=== PATIENT | female | born 1990 | race African-American/Black ===

== ENCOUNTER 2016-11-28 01:04 | Emergency (ER) | payer OTHER ==
[~2016-11-28] VITALS: Ht 167.6 cm; Wt 71.7 kg
[~2016-11-28 01:04] MED LIST: 0; AZITHROMYCIN 2250 MG PO; DERMOPLAST SPRA56 ML; HYDROCORTISONE30 G9 TOP; IBUPROFEN 600600 M1 PO; IBUPROFEN 800800 M1 PO; MIRALAX255 GM PO; NOHOMEMEDICATIONS; NORCO 5-325 TA1 EACH PO; ONDANSETRON HCL4 M2 PO; PRENATAL PO; TUCKS MEDICATE1 EAC1; TYLENOL W/CODEI1 TA2 PO
[2016-11-28] MEDS ORDERED: PENICILLIN VK500 M1 PO (01:21)
[2016-11-28] MEDS ORDERED: NORCO 5-325 TA1 EACH PO ×2 (01:21→01:24)
== END 2016-11-28 01:48 | disposition home or self-care (01) ==
LOC: ER 01:04
DX: K08.89 Other specified disorders of teeth and supporting structures (principal); F10.99 Alcohol use, unspecified with unspecified alcohol-induced disorder; Z98.890 Other specified postprocedural states

== ENCOUNTER 2017-06-22 01:03 | Emergency (ER) | payer OTHER ==
[~2017-06-22] VITALS: Ht 167.6 cm; Wt 77.1 kg
[~2017-06-22 01:03] MED LIST changes: +PENICILLIN VK500 M1 PO
[2017-06-22] MEDS ORDERED: NOHOMEMEDICATIONS (01:07)
[2017-06-22 02:49] LABS: URINE BILIRUBIN NEGATIVE (Negative); URINE BLOOD NEGATIVE (Negative); URINE CLARITY CLEAR; URINE COLOR YELLOW; URINE GLUCOSE-RANDOM* NEGATIVE (Negative); URINE KETONES NEGATIVE (Negative); URINE LEUKOCYTES-REFLEX NEGATIVE (Negative); URINE NITRITE-REFLEX NEGATIVE (Negative); URINE PROTEIN (DIPSTICK) NEGATIVE (Negative); URINE SPECIFIC GRAVITY 1.015 (1.005-1.035); URINE UROBILINOGEN 0.2 E.U./dl (0.2-1.0)
[2017-06-22] MEDS ORDERED: PROMETH-CODEIN 65 ML PO (03:05)
[2017-06-22] MEDS ORDERED: MUCINEX D TABL1 EACH PO (03:05)
[2017-06-22 03:13] VITALS: BP 126/76
== END 2017-06-22 03:15 | disposition home or self-care (01) ==
LOC: ER 01:03
PROVIDERS: Emergency Medicine
DX: J11.1 Influenza due to unidentified influenza virus with other respiratory manifestations (principal); Z90.49 Acquired absence of other specified parts of digestive tract

== ENCOUNTER 2017-08-20 18:46 | Emergency (ER) | payer OTHER ==
[~2017-08-20] VITALS: Ht 167.6 cm; Wt 78.9 kg
[~2017-08-20 18:46] MED LIST changes: +MUCINEX D TABL1 EACH PO; +PROMETH-CODEIN 65 ML PO
[2017-08-20 19:34] LABS: URINE BILIRUBIN NEGATIVE (Negative); URINE BLOOD NEGATIVE (Negative); URINE CLARITY CLEAR; URINE COLOR YELLOW; URINE GLUCOSE-RANDOM* NEGATIVE (Negative); URINE KETONES NEGATIVE (Negative); URINE LEUKOCYTES NEGATIVE (Negative); URINE NITRITE NEGATIVE (Negative); URINE PROTEIN (DIPSTICK) NEGATIVE (Negative); URINE SPECIFIC GRAVITY 1.015 (1.005-1.035); URINE UROBILINOGEN 0.2 E.U./dl (0.2-1.0)
[2017-08-20] MEDS ORDERED: NAPROSYN500 MG PO (19:54)
[2017-08-20] MEDS ORDERED: TIZANIDINE HCL4 MG PO (19:54)
== END 2017-08-20 20:18 | disposition home or self-care (01) ==
LOC: ER 18:46
PROVIDERS: Nurse Practitioner
DX: M54.5 Low back pain (principal); Z90.49 Acquired absence of other specified parts of digestive tract

== ENCOUNTER 2017-08-31 16:53 | Emergency (ER) | payer OTHER ==
[~2017-08-31] VITALS: Ht 167.6 cm; Wt 79.4 kg
[~2017-08-31 16:53] MED LIST changes: +NAPROSYN500 MG PO; +TIZANIDINE HCL4 MG PO
[2017-08-31 17:43] LABS: URINE BILIRUBIN NEGATIVE (Negative); URINE BLOOD 2+ (Negative); URINE CLARITY CLEAR; URINE COLOR YELLOW; URINE GLUCOSE-RANDOM* NEGATIVE (Negative); URINE KETONES NEGATIVE (Negative); URINE LEUKOCYTES NEGATIVE (Negative); URINE NITRITE NEGATIVE (Negative); URINE PROTEIN (DIPSTICK) NEGATIVE (Negative); URINE UROBILINOGEN 0.2 E.U./dl (0.2-1.0)
[2017-08-31 17:57] LABS: CASTS None Seen /LPF (None Seen); CRYSTALS None Seen /LPF (None Seen); SQUAMOUS 0-3 Few /LPF (0-3); URINE RBC 3-10 Few /HPF (0-2); URINE WBC None Seen /HPF (0-5)
[2017-08-31 18:12] LABS: ABSOLUTE NEUTROPHILS 4.1 thou/uL (1.4-8.2); BASOPHILS 0.4 % (0.0-2.0); HEMATOCRIT 39.7 % (37.0-47.0); HEMOGLOBIN 13.4 gm/dL (12.0-15.0); LYMPHOCYTES 22.8 % (24.0-44.0); MCH 31.2 pg (26.0-34.0); MCHC 33.6 g/dL (28.0-37.0); MCV 92.7 fL (80.0-100.0); PLATELET COUNT 301 thou/uL (150-400); POLYS 66.8 % (36.0-66.0); RBC 4.29 mil/uL (4.20-5.00); RDW 12.8 % (10.5-14.5); WBC 6.1 thou/uL (4.0-11.0)
[2017-08-31 18:22] LABS: CALCIUM 9.3 mg/dL (8.5-10.1); CREATININE 0.8 mg/dL (0.6-1.0); POTASSIUM 3.6 mmol/L (3.5-5.1)
[2017-08-31 18:28] LABS: ALBUMIN 3.5 g/dL (3.4-5.0); TOTAL BILIRUBIN 0.3 mg/dL (<0.1-1.0)
[2017-08-31] MEDS ORDERED: ZANTAC 150MG T150 MG PO (18:39)
[2017-08-31] MEDS ORDERED: ONDANSETRON HCL4 M2 PO (18:39)
[2017-08-31] MEDS ORDERED: BENTYL 20 MG TA20 M1 PO (18:39)
== END 2017-08-31 19:10 | disposition home or self-care (01) ==
LOC: ER 16:53
PROVIDERS: Nurse Practitioner Family
DX: R10.9 Unspecified abdominal pain (principal); R11.2 Nausea with vomiting, unspecified

== ENCOUNTER 2017-09-02 23:37 | Emergency (ER) | payer OTHER ==
[~2017-09-02] VITALS: Ht 167.6 cm; Wt 79.4 kg
[~2017-09-02 23:37] MED LIST changes: +BENTYL 20 MG TA20 M1 PO; +ZANTAC 150MG T150 MG PO
[2017-09-03 00:15] LABS: URINE BILIRUBIN NEGATIVE (Negative); URINE BLOOD NEGATIVE (Negative); URINE CLARITY CLEAR; URINE COLOR YELLOW; URINE GLUCOSE-RANDOM* NEGATIVE (Negative); URINE KETONES NEGATIVE (Negative); URINE LEUKOCYTES-REFLEX NEGATIVE (Negative); URINE NITRITE-REFLEX NEGATIVE (Negative); URINE PROTEIN (DIPSTICK) NEGATIVE (Negative); URINE UROBILINOGEN 0.2 E.U./dl (0.2-1.0)
[2017-09-03 00:42] LABS: CALCIUM 9.1 mg/dL (8.5-10.1); CREATININE 0.8 mg/dL (0.6-1.0); POTASSIUM 3.8 mmol/L (3.5-5.1)
[2017-09-03 00:43] LABS: ABSOLUTE NEUTROPHILS 2.9 thou/uL (1.4-8.2); BASOPHILS 1.1 % (0.0-2.0); EOSINOPHILS 9.3 % (0.0-3.0); HEMATOCRIT 38.6 % (37.0-47.0); LYMPHOCYTES 25.4 % (24.0-44.0); MCH 31.2 pg (26.0-34.0); MCHC 33.7 g/dL (28.0-37.0); MCV 92.5 fL (80.0-100.0); MONOCYTES 8.8 % (1.0-8.0); PLATELET COUNT 278 thou/uL (150-400); POLYS 55.4 % (36.0-66.0); RBC 4.18 mil/uL (4.20-5.00); RDW 12.8 % (10.5-14.5); WBC 5.2 thou/uL (4.0-11.0)
[2017-09-03 00:47] LABS: ALBUMIN 3.3 g/dL (3.4-5.0); TOTAL BILIRUBIN 0.2 mg/dL (<0.1-1.0); TOTAL PROTEIN 7.7 g/dL (6.4-8.2)
== END 2017-09-03 02:51 | disposition home or self-care (01) ==
LOC: ER 23:37
PROVIDERS: Emergency Medicine
DX: R10.9 Unspecified abdominal pain (principal); R11.0 Nausea; R22.9 Localized swelling, mass and lump, unspecified; Z90.49 Acquired absence of other specified parts of digestive tract

== ENCOUNTER 2017-09-22 20:59 | Emergency (ER) | payer OTHER ==
[~2017-09-22] VITALS: Ht 167.6 cm; Wt 79.4 kg
[2017-09-22 21:39] LABS: ABSOLUTE NEUTROPHILS 3.1 thou/uL (1.4-8.2); BASOPHILS 0.8 % (0.0-2.0); EOSINOPHILS 7.1 % (0.0-3.0); HEMATOCRIT 38.6 % (37.0-47.0); HEMOGLOBIN 12.8 gm/dL (12.0-15.0); MCHC 33.2 g/dL (28.0-37.0); MCV 93.3 fL (80.0-100.0); MONOCYTES 7.9 % (1.0-8.0); PLATELET COUNT 302 thou/uL (150-400); POLYS 59.2 % (36.0-66.0); RBC 4.13 mil/uL (4.20-5.00); RDW 12.6 % (10.5-14.5); WBC 5.3 thou/uL (4.0-11.0)
[2017-09-22 21:40] LABS: URINE BILIRUBIN NEGATIVE (Negative); URINE BLOOD NEGATIVE (Negative); URINE CLARITY CLEAR; URINE COLOR YELLOW; URINE GLUCOSE-RANDOM* NEGATIVE (Negative); URINE KETONES NEGATIVE (Negative); URINE LEUKOCYTES NEGATIVE (Negative); URINE NITRITE NEGATIVE (Negative); URINE PROTEIN (DIPSTICK) NEGATIVE (Negative); URINE SPECIFIC GRAVITY 1.025 (1.005-1.035); URINE UROBILINOGEN 0.2 E.U./dl (0.2-1.0)
[2017-09-22 21:47] LABS: CALCIUM 9.1 mg/dL (8.5-10.1); CREATININE 0.8 mg/dL (0.6-1.0); POTASSIUM 3.4 mmol/L (3.5-5.1)
[2017-09-22 21:53] LABS: ALBUMIN 3.6 g/dL (3.4-5.0); TOTAL BILIRUBIN 0.2 mg/dL (<0.1-1.0); TOTAL PROTEIN 7.7 g/dL (6.4-8.2)
[2017-09-22] MEDS ORDERED: BENTYL 20 MG TA20 M1 PO (22:12)
== END 2017-09-22 23:22 | disposition home or self-care (01) ==
LOC: ER 20:59
PROVIDERS: Physician Assistant
DX: R10.9 Unspecified abdominal pain (principal); R11.0 Nausea; Z90.49 Acquired absence of other specified parts of digestive tract

== ENCOUNTER 2017-10-26 01:59 | Emergency (ER) | payer OTHER ==
[~2017-10-26] VITALS: Ht 167.6 cm; Wt 77.1 kg
[2017-10-26] MEDS ORDERED: PROMETHAZINE/C118 ML PO (03:22)
[2017-10-26] MEDS ORDERED: MUCINEX D ER 11 EACH PO (03:22)
[2017-10-26] MEDS ORDERED: IBUPROFEN 600600 M1 PO (03:22)
== END 2017-10-26 03:30 | disposition home or self-care (01) ==
LOC: ER 01:59
DX: J06.9 Acute upper respiratory infection, unspecified (principal)

== ENCOUNTER 2017-12-07 00:53 | Emergency (ER) | payer OTHER ==
[~2017-12-07] VITALS: Ht 167.6 cm; Wt 79.4 kg
[~2017-12-07 00:53] MED LIST changes: +MUCINEX D ER 11 EACH PO; +PROMETHAZINE/C118 ML PO
[2017-12-07 01:18] LABS: URINE BILIRUBIN NEGATIVE (Negative); URINE BLOOD NEGATIVE (Negative); URINE CLARITY CLEAR; URINE COLOR YELLOW; URINE GLUCOSE-RANDOM* NEGATIVE (Negative); URINE KETONES NEGATIVE (Negative); URINE LEUKOCYTES NEGATIVE (Negative); URINE NITRITE NEGATIVE (Negative); URINE PROTEIN (DIPSTICK) NEGATIVE (Negative); URINE SPECIFIC GRAVITY >= 1.030 (1.005-1.035)
== END 2017-12-07 02:45 | disposition home or self-care (01) ==
LOC: ER 00:53
PROVIDERS: Emergency Medicine
DX: N76.0 Acute vaginitis (principal); Z90.89 Acquired absence of other organs

== ENCOUNTER 2018-06-29 08:23 | Emergency (ER) | payer OTHER ==
[~2018-06-29] VITALS: Ht 170.2 cm; Wt 79.4 kg
[2018-06-29 08:24] VITALS: BP 114/71
[2018-06-29] MEDS ORDERED: NORCO 5-325 TA1 EACH PO (09:07)
== END 2018-06-29 09:20 | disposition home or self-care (01) ==
LOC: ER 08:23
DX: S00.83XA Contusion of other part of head, initial encounter (principal); Z90.49 Acquired absence of other specified parts of digestive tract; V89.2XXA Person injured in unspecified motor-vehicle accident, traffic, initial encounter; Y93.89 Activity, other specified; Y92.89 Other specified places as the place of occurrence of the external cause; Y99.8 Other external cause status

== ENCOUNTER 2018-11-03 13:04 | Emergency (ER) | payer MEDICAID ==
[~2018-11-03] VITALS: Ht 167.6 cm; Wt 81.7 kg
[2018-11-03 13:54] LABS: URINE BILIRUBIN NEGATIVE (Negative); URINE BLOOD NEGATIVE (Negative); URINE CLARITY CLEAR; URINE COLOR YELLOW; URINE GLUCOSE-RANDOM* NEGATIVE (Negative); URINE KETONES NEGATIVE (Negative); URINE LEUKOCYTES-REFLEX NEGATIVE (Negative); URINE NITRITE-REFLEX NEGATIVE (Negative); URINE PROTEIN (DIPSTICK) NEGATIVE (Negative); URINE SPECIFIC GRAVITY 1.015 (1.005-1.035); URINE UROBILINOGEN 0.2 E.U./dl (0.2-1.0)
[2018-11-03] MEDS ORDERED: FLAGYL500 M1 PO (14:10)
[2018-11-03 14:30] VITALS: BP 126/86
== END 2018-11-03 14:30 | disposition home or self-care (01) ==
LOC: ER 13:04
PROVIDERS: Nurse Practitioner Family
DX: N76.0 Acute vaginitis (principal); B96.89 Other specified bacterial agents as the cause of diseases classified elsewhere; Z90.49 Acquired absence of other specified parts of digestive tract; Z98.890 Other specified postprocedural states

== ENCOUNTER 2019-01-17 03:18 | Emergency (ER) | payer MEDICAID ==
[~2019-01-17] VITALS: Ht 167.6 cm; Wt 81.7 kg
[~2019-01-17 03:18] MED LIST changes: +FLAGYL500 M1 PO
[2019-01-17 03:40] LABS: URINE BILIRUBIN NEGATIVE (Negative); URINE BLOOD NEGATIVE (Negative); URINE CLARITY CLEAR; URINE COLOR YELLOW; URINE GLUCOSE-RANDOM* NEGATIVE (Negative); URINE KETONES NEGATIVE (Negative); URINE LEUKOCYTES-REFLEX NEGATIVE (Negative); URINE NITRITE-REFLEX NEGATIVE (Negative); URINE PROTEIN (DIPSTICK) NEGATIVE (Negative); URINE SPECIFIC GRAVITY 1.025 (1.005-1.035); URINE UROBILINOGEN 0.2 E.U./dl (0.2-1.0)
[2019-01-17 03:59] LABS: ABSOLUTE NEUTROPHILS 1.5 thou/uL (1.4-8.2); BASOPHILS 1.5 % (0.0-2.0); EOSINOPHILS 7.6 % (0.0-3.0); HEMATOCRIT 38.4 % (37.0-47.0); HEMOGLOBIN 13.2 gm/dL (12.0-15.0); LYMPHOCYTES 40.2 % (24.0-44.0); MCH 31.3 pg (26.0-34.0); MCHC 34.3 g/dL (28.0-37.0); MCV 91.5 fL (80.0-100.0); MONOCYTES 8.9 % (1.0-8.0); PLATELET COUNT 280 thou/uL (150-400); POLYS 41.8 % (36.0-66.0); RDW 12.6 % (10.5-14.5); WBC 3.7 thou/uL (4.0-11.0)
[2019-01-17 04:02] LABS: CALCIUM 10.1 mg/dL (8.5-10.1); CREATININE 0.9 mg/dL (0.6-1.0)
[2019-01-17 04:04] LABS: POTASSIUM 2.8 mmol/L (3.5-5.1)
[2019-01-17 04:09] LABS: ALBUMIN 3.5 g/dL (3.4-5.0); DIRECT BILIRUBIN < 0.1 mg/dL (<0.1-0.3); LIPASE 93 U/L (73-393); SGOT 15 U/L (15-37); SGPT 18 U/L (30-65); TOTAL BILIRUBIN 0.2 mg/dL (<0.1-1.0); TOTAL PROTEIN 7.8 g/dL (6.4-8.2)
[2019-01-17] MEDS ORDERED: ONDANSETRON ODT8 MG PO (04:58)
[2019-01-17] MEDS ORDERED: TRAMADOL 50 MG50 MG PO (04:58)
[2019-01-17] MEDS ORDERED: PRILOSEC OTC20 MG PO (04:58)
[2019-01-17 05:24] VITALS: BP 102/70
== END 2019-01-17 05:24 | disposition home or self-care (01) ==
LOC: ER 03:18
PROVIDERS: Emergency Medicine
DX: K21.9 Gastro-esophageal reflux disease without esophagitis (principal); E87.6 Hypokalemia; R11.2 Nausea with vomiting, unspecified; Z90.49 Acquired absence of other specified parts of digestive tract

== ENCOUNTER 2019-04-07 07:05 | Emergency (ER) | payer MEDICAID ==
[~2019-04-07] VITALS: Ht 167.6 cm; Wt 81.7 kg
[~2019-04-07 07:05] MED LIST changes: +ONDANSETRON ODT8 MG PO; +PRILOSEC OTC20 MG PO; +TRAMADOL 50 MG50 MG PO
[2019-04-07 07:18] VITALS: BP 101/54
[2019-04-07] MEDS ORDERED: ZPAK PO (07:41)
== END 2019-04-07 07:51 | disposition home or self-care (01) ==
LOC: ER 07:05
DX: J20.9 Acute bronchitis, unspecified (principal); Z90.49 Acquired absence of other specified parts of digestive tract

== ENCOUNTER 2020-09-24 00:39 | Emergency (ER) | payer OTHER ==
[~2020-09-24] VITALS: Ht 167.6 cm; Wt 89.4 kg
[~2020-09-24 00:39] MED LIST changes: +ZPAK PO
[2020-09-24 01:20] LABS: ABSOLUTE NEUTROPHILS 2.9 thou/uL (1.4-8.2); BASOPHILS 0.9 % (0.0-2.0); EOSINOPHILS 3.3 % (0.0-3.0); HEMATOCRIT 38.9 % (37.0-47.0); LYMPHOCYTES 33.7 % (24.0-44.0); MCH 31.2 pg (26.0-34.0); MCHC 33.5 g/dL (28.0-37.0); MCV 93.4 fL (80.0-100.0); PLATELET COUNT 298 thou/uL (150-400); POLYS 54.1 % (36.0-66.0); RBC 4.17 mil/uL (4.20-5.00); WBC 5.3 thou/uL (4.0-11.0)
[2020-09-24 01:27] LABS: CALCIUM 9.1 mg/dL (8.5-10.1); CREATININE 0.8 mg/dL (0.6-1.0); POTASSIUM 3.7 mmol/L (3.5-5.1)
[2020-09-24 01:33] LABS: ALBUMIN 3.5 g/dL (3.4-5.0); TOTAL BILIRUBIN 0.2 mg/dL (0.2-1.0)
[2020-09-24] MEDS ORDERED: PROTONIX 20 MG20 M1 PO (03:20)
[2020-09-24 03:44] VITALS: BP 108/62
== END 2020-09-24 03:45 | disposition home or self-care (01) ==
LOC: ER 00:39
PROVIDERS: Emergency Medicine
DX: K29.70 Gastritis, unspecified, without bleeding (principal); R11.2 Nausea with vomiting, unspecified; Z90.49 Acquired absence of other specified parts of digestive tract